=== PATIENT | male | born 1995 | race Caucasian/White ===

== ENCOUNTER 2021-03-05 23:51 | Emergency (ER) | payer OTHER ==
[~2021-03-05] VITALS: Ht 182.9 cm; Wt 84.1 kg
[2021-03-06 01:07] VITALS: BP 133/85; PULSE 86; TEMP 98
== END 2021-03-06 01:07 | disposition home or self-care (01) ==
LOC: COL.ER 23:51
DX: M25.551 Pain in right hip (principal)

== ENCOUNTER 2021-08-25 01:12 | Emergency (ER) | payer OTHER ==
[~2021-08-25] VITALS: Ht 182.9 cm; Wt 81.8 kg
[2021-08-25 01:13] VITALS: TEMP 98.9
[2021-08-25] MEDS ORDERED: PERCOCET 325 MG1 TA2 PO (02:21)
[2021-08-25] MEDS ORDERED: MEDROL 4MG DOSPA4 MG PO (02:21)
[2021-08-25 02:34] VITALS: BP 134/80; PULSE 75
== END 2021-08-25 04:43 | disposition home or self-care (01) ==
LOC: COL.ER 01:12
DX: G89.29 Other chronic pain (principal); M54.50 Low back pain, unspecified; F17.200 Nicotine dependence, unspecified, uncomplicated
CPT/HCPCS: J1170; J1885

== ENCOUNTER 2022-01-15 23:15 | Emergency (ER) | payer OTHER ==
[~2022-01-15] VITALS: Ht 185.4 cm; Wt 81.8 kg
[~2022-01-15 23:15] MED LIST: MEDROL 4MG DOSPA4 MG PO; PERCOCET 325 MG1 TA2 PO
[2022-01-15 23:18] VITALS: BP 137/91; TEMP 97.8
[2022-01-16] MEDS ORDERED: VALIUM 5MG T5 MG/TAB PO (00:09)
[2022-01-16 00:18] VITALS: PULSE 83
== END 2022-01-16 00:20 | disposition home or self-care (01) ==
LOC: COL.ER 23:15
DX: M54.50 Low back pain, unspecified (principal); Z87.39 Personal history of other diseases of the musculoskeletal system and connective tissue; Z28.310 Unvaccinated for COVID-19; X50.1XXA Overexertion from prolonged static or awkward postures, initial encounter
CPT/HCPCS: J1885